=== PATIENT | male | born 1980 | race Two or more races ===

== ENCOUNTER 2019-02-08 08:15 | Outpatient (CLI) | payer OTHER | END 2019-02-08 08:18 | disposition home or self-care (01) | LOC: NUCLEAR 08:15 | DX: I11.9 Hypertensive heart disease without heart failure (principal); R07.89 Other chest pain ==

== ENCOUNTER 2020-10-08 05:45 | Day surgery (SDC) | payer OTHER ==
[~2020-10-08 05:45] MED LIST: ENALAPRIL MALEA10 MG PO
== END 2020-10-08 14:00 | disposition home or self-care (01) ==
LOC: CIR.AMB 05:45
PROVIDERS: ATTEND Specialist
DX: K40.90 Unilateral inguinal hernia, without obstruction or gangrene, not specified as recurrent (principal); Z20.822 Contact with and (suspected) exposure to COVID-19

== ENCOUNTER 2022-09-10 22:13 | Emergency (ER) | payer OTHER ==
[~2022-09-10] VITALS: Ht 165.1 cm; Wt 63.5 kg
== END 2022-09-11 00:30 | disposition home or self-care (01) ==
LOC: ER 22:13
DX: B00.9 Herpesviral infection, unspecified (principal); I10 Essential (primary) hypertension

== ENCOUNTER 2024-04-09 06:25 | Day surgery (SDC) | payer OTHER ==
[2024-04-04 11:19] LABS: HEMATOCRIT 44.1 % (39.0-48.0); HEMOGLOBIN 15.2 g/dL (13-16.00); MEAN CELL VOLUME 89.4 fL (80.0-100.00); MEAN CORPUSCULAR HEMOGLOBIN 30.8 pg (27.00-32.0); MEAN CORPUSCULAR HGB CONC 34.5 g/dl (32.0-36.0); PLATELET COUNT 285 K/uL (150-450); RED BLOOD COUNT 4.94 M/uL (4.00-6.00); RED CELL DISTRIBUTION WIDTH 13.7 % (11.5-14.5)
[2024-04-04 11:20] LABS: PH,URINE 5.5 (5.0-8.0); URINE APPEARANCE Clear; URINE BILIRRUBIN Negative (NEGATIVE); URINE BLOOD Negative; URINE COLOR Yellow; URINE GLUCOSE Negative (NEGATIVE); URINE KETONE Negative (NEGATIVE); URINE LEUKOCYTE Negative; URINE NITRATE Negative; URINE PROTEIN Negative (NEGATIVE); URINE UROBILINOGEN 0.2 E.U./dl
[2024-04-04 11:26] LABS: URINE BACTERIA 47.8 uL (0.0-1933); URINE WBC 5.5 uL (0.0-23.2)
[2024-04-04 11:47] LABS: INR 0.95; PARTIAL THROMBOPLASTIN TIME 30.9 SECONDS (22.0-34.0); PROTHROMBIN TIME 10.4 SECONDS (9.0-11.5)
[2024-04-04 12:02] LABS: ALBUMIN 4.3 gm/dL (3.4-5.0); BILIRUBIN TOTAL 0.4 mg/dL (0.3-1.2); CALCIUM 9.6 mg/dL (8.5-10.1); CREATININE SERUM 0.98 mg/dL (0.70-1.30); GFR 82.71; GLOBULINA 3.6 G/DL (2.4-3.5); POTASSIUM 4.66 mEq/L (3.5-5.1); TOTAL PROTEIN 7.9 gm/dL (6.4-8.2)
[2024-04-04 12:17] LABS: URINE EPITHELIAL CELLS 1.2 uL (0.0-38.8); URINE RBC 1.6 uL (0.0-20.8)
[2024-04-09] MEDS ORDERED: CEFAZOLIN SODIUM 1,000 MG VIAL ONE ×2 (09:14→12:02)
[2024-04-09] MEDS ORDERED: BUPIVACAINE HCL/MPF 0.5% 30ML VIAL ONE (09:41)
[2024-04-09] MEDS ORDERED: FAMOTIDINE/PF 20 MG/2 ML VIAL ONE (12:02)
[2024-04-09] MEDS ORDERED: CEFAZOLIN SODIUM 1,000 MG VIAL IV SCH (12:30)
[2024-04-09] MEDS ORDERED: FAMOTIDINE/PF 20 MG/10 ML SYRINGE IV SCH (12:30)
== END 2024-04-09 15:35 | disposition home or self-care (01) ==
LOC: CIR.AMB 06:25
PROVIDERS: ATTEND Specialist
DX: K40.90 Unilateral inguinal hernia, without obstruction or gangrene, not specified as recurrent (principal); I10 Essential (primary) hypertension

== ENCOUNTER 2024-09-16 07:17 | Outpatient (CLI) | payer OTHER | END 2024-09-16 07:22 | disposition home or self-care (01) | LOC: TOM 07:17 | PROVIDERS: ATTEND Specialist | DX: R10.9 Unspecified abdominal pain (principal) ==